=== PATIENT | female | born 1990 | race Caucasian/White ===

== ENCOUNTER 2018-08-25 10:36 | Day surgery (SDC) | payer OTHER ==
[~2018-08-25] VITALS: Ht 165.1 cm; Wt 67.5 kg
[~2018-08-25 10:36] MED LIST: ANUS2.5C2 PR; DOCU5LIQ PO; IBUP-1114 PO; IBUP600T26 PO; LR 1,000 ML IV ONE; MAPA500T17 PO; MAPA500T2 PO; MOM30SS PO; PRENTAB9 PO
[2018-08-25] MEDS ORDERED: BUPIVACAINE HCL 0.25% 30 ML VIAL As Ordered ONE (11:02)
[2018-08-25 11:12] LABS: HEMATOCRIT 41.8 % (36.0-47.0); HEMOGLOBIN 13.9 g/dl (12.0-15.5); MEAN CORPUSCULAR HEMOGLOBIN 30.8 pg (27.0-33.0); MEAN CORPUSCULAR HGB CONC 33.3 g/dl (32.0-36.5); MEAN CORPUSCULAR VOLUME 92.5 fl (80.0-96.0); PLATELET COUNT, AUTOMATED 178 10^3/uL (150-450); RED BLOOD COUNT 4.52 10^6/uL (4.00-5.40); WHITE BLOOD COUNT 6.5 10^3/uL (4.0-10.0)
[2018-08-25 11:34] LABS: HCG, SERUM QUALITATIVE NEGATIVE (NEGATIVE)
[2018-08-25] MEDS ORDERED: fentaNYL 100 MCG/2 ML INJECTION (J3010) As Ordered ONE (11:56)
[2018-08-25] MEDS ORDERED: GLYCOPYRROLATE INJ 0.2 MG/ML 2 ML VIAL As Ordered ONE (11:56)
[2018-08-25] MEDS ORDERED: MIDAZOLAM INJ 2 MG/2 ML VIAL (J2250) As Ordered ONE (11:56)
[2018-08-25] MEDS ORDERED: ROCURONIUM BROMIDE 50 MG/5 ML VIAL As Ordered ONE (11:56)
[2018-08-25] MEDS ORDERED: LIDOCAINE 2% INJ 100 MG/5 ML SDV (FOR ANES.) As Ordered ONE (11:56)
[2018-08-25] MEDS ORDERED: SUGAMMADEX SODIUM 500 MG/5 ML VIAL (BRIDION) As Ordered ONE (11:56)
[2018-08-25] MEDS ORDERED: PROPOFOL 200 MG/20 ML VIAL As Ordered ONE ×2 (11:56→12:45)
[2018-08-25] MEDS ORDERED: HYDROmorphone HCL 2 MG/ML 1ML VIAL (J1170) As Ordered ONE (11:56)
[2018-08-25] MEDS ORDERED: ONDANSETRON 4MG/2ML VIAL (J2405) As Ordered ONE (11:56)
[2018-08-25] MEDS ORDERED: LR 1,000 ML IV SCH ×2 (13:15)
[2018-08-25] MEDS ORDERED: ONDANSETRON 4MG/2ML VIAL (J2405) IV PRN (13:15)
[2018-08-25] MEDS ORDERED: IBUP80TA PO (13:15)
[2018-08-25] MEDS ORDERED: NORCO, ANEXSIA 5/325MG TABLET (HYDROcodone/ACETAMINOPHEN) PO PRN (13:15)
[2018-08-25] MEDS ORDERED: HYDR-4571 PO (13:15)
[2018-08-25] MEDS ORDERED: fentaNYL 100 MCG/2 ML INJECTION (J3010) IV PRN (13:15)
[2018-08-25] MEDS ORDERED: COLA100C5 PO (13:16)
[2018-08-25 13:55] VITALS: BP 167/94
--- NOTE | 2018-08-25 21:18 | RO ---
DATE OF PROCEDURE: 08/25/2018 PREOPERATIVE DIAGNOSIS: Satisfied parity. POSTOPERATIVE DIAGNOSIS: Satisfied parity. PROCEDURE PERFORMED: Laparoscopic bilateral salpingectomy. SURGEON: Charlie Phillips DO COMPUTER GAME DESIGNER: None. ANESTHESIA TYPE: General endotracheal. SPECIMENS SENT TO PATHOLOGY: Bilateral fallopian tubes. ESTIMATED BLOOD LOSS: 5 mL. FLUIDS REPLACED: 900 mL lactated Ringer's. DRAINS: Wagner catheter. URINE OUTPUT: 1400 mL. COMPLICATIONS: None. PREOPERATIVE ANTIBIOTICS: None indicated. INTRAOPERATIVE FINDINGS: Normal uterus and bilateral adnexa and ovaries, normal liver edge and gallbladder. Appendix is retrocecal, not visualized. INDICATION: The patient is a 28-year-old with satisfied parity. She is requesting permanent tubal sterilization. We have reviewed all options. She has elected to proceed with laparoscopic bilateral salpingectomy. DESCRIPTION OF PROCEDURE: The patient was counseled and consented on the risks, benefits, indications and alternatives of the procedure. Informed consent was obtained. She was taken to the operating room with an IV running and placed on operating table in the dorsal supine position where general anesthesia was administered and the airway secured without any difficulty. Time-out was performed per protocol. She was prepared and draped in the normal sterile fashion. A Wagner catheter was placed under sterile conditions. A sterile speculum placed into the vagina with good visualization of the cervix. The anterior lip of the cervix was grasped with a single-tooth tenaculum and downward traction was applied. The uterus had sounded to 7 cm. The ZUMI uterine manipulator was placed without any difficulty. The single-tooth tenaculum was removed, the sterile speculum was removed. A glove switch was performed. Attention was turned to the abdomen. 5 mL of 0.25% Marcaine were injected into the umbilicus. A 5 mm incision was made with an 11 blade in the umbilicus and a Veress needle was placed through this incision into the intraperitoneal cavity. Intraperitoneal placement was confirmed with ease of flow of normal saline, negative return on aspiration, a positive drop test. The abdomen was insufflated with 2 liters of gas. Opening pressure was 2 mmHg. The Veress needle was removed. The size 5 mm Xcel laparoscopic trocar was placed through this incision into the intraperitoneal cavity. Intraperitoneal placement was confirmed with no incidental bleeding or injury. The patient was then placed in steep Trendelenburg. Two additional laparoscopic port sites were placed in the left lower abdomen through 5 mm incisions under direct laparoscopic visualization. The cannulas were placed successfully. Attention was first turned to the left fallopian tube. The left fallopian tube was grasped at the fimbriated end, elevated and the underlying mesosalpinx and broad ligament were sequentially clamped, coagulated and transected with the 5 mm LigaSure device. At the level of the cornu, the 5 mm LigaSure device was used to crossclamp, coagulate and transect, thus amputating the left fallopian tube. The left fallopian tube was brought through the cannula without any difficulty. Attention was turned to the right fallopian tube. The right fallopian tube was followed out to fimbriated end. The fimbriated end was grasped and elevated. The underlying mesosalpinx/broad ligament was sequentially clamped, coagulated and transected to the level of the cornu. At the level of cornu, the LigaSure device was clamped, coagulated and transected, thus amputating the right fallopian tube. The right fallopian tube was brought through the cannula without any difficulty and sent to pathology for permanent section. Excellent hemostasis was noted on both the right and left surgical sites. Vessel Master image was taken. The gas was released from the abdomen. As the gas was being released, inspection of the pelvis confirmed maintained hemostasis. The cannulas were removed. The skin incisions were closed with #4-0 Monocryl in subcuticular fashion and reinforced with Dermabond. Attention was turned to the vagina. All instruments were removed from the vagina. The Wagner catheter was removed. Sponge, lap, needle and sponge counts were correct per protocol. The patient was taken to the post-anesthesia care unit (PACU) in good and stable condition.
== END 2018-08-25 14:30 | disposition home or self-care (01) ==
LOC: M SDC 10:36
PROVIDERS: ATTEND Obstetrics & Gynecology
DX: Z30.2 Encounter for sterilization (principal); Z79.899 Other long term (current) drug therapy; F17.210 Nicotine dependence, cigarettes, uncomplicated; Z91.040 Latex allergy status; Z91.018 Allergy to other foods
CPT/HCPCS: 36415; 58661; 84703; 85027; 86850; 86900; 86901; 88302; J1170; J2250; J2405; J3010